=== PATIENT | male | born 1950 | race Caucasian/White ===

== ENCOUNTER → 2019-12-23 | Outpatient (CLI) | payer OTHER ==
[~2019-12-23] MED LIST: CARISOPRODOL 3350 MG PO; FLEXERIL PO; MEDROLDOSEPACK PO; NORCO 5-325 TA1 EACH PO; PERCOCET 5-3251 EACH PO
== END ==
LOC: SJCVC 11:39
DX: I49.3 Ventricular premature depolarization (principal); I47.1 Supraventricular tachycardia; J44.9 Chronic obstructive pulmonary disease, unspecified; Z79.82 Long term (current) use of aspirin; Z79.899 Other long term (current) drug therapy; Z87.891 Personal history of nicotine dependence; Z82.49 Family history of ischemic heart disease and other diseases of the circulatory system

== ENCOUNTER → 2019-12-31 | Outpatient (CLI) | payer OTHER | LOC: SJCVCIMAG 07:59 | PROVIDERS: ATTEND Internal Medicine Cardiovascular Disease | DX: R94.31 Abnormal electrocardiogram [ECG] [EKG] (principal); I37.1 Nonrheumatic pulmonary valve insufficiency; I47.1 Supraventricular tachycardia ==

== ENCOUNTER → 2020-01-21 | Outpatient (CLI) | payer OTHER | LOC: SJCVC 15:05 | PROVIDERS: ATTEND Internal Medicine Cardiovascular Disease | DX: R00.1 Bradycardia, unspecified (principal); I47.1 Supraventricular tachycardia; J44.9 Chronic obstructive pulmonary disease, unspecified; Z79.82 Long term (current) use of aspirin; Z79.899 Other long term (current) drug therapy; Z82.49 Family history of ischemic heart disease and other diseases of the circulatory system; Z87.891 Personal history of nicotine dependence ==

== ENCOUNTER → 2020-02-19 | Outpatient (CLI) | payer OTHER | LOC: SJCVC 14:33 | PROVIDERS: ATTEND Internal Medicine Cardiovascular Disease | DX: R00.1 Bradycardia, unspecified (principal); I47.1 Supraventricular tachycardia; J44.9 Chronic obstructive pulmonary disease, unspecified; Z79.82 Long term (current) use of aspirin; Z79.899 Other long term (current) drug therapy; Z82.49 Family history of ischemic heart disease and other diseases of the circulatory system; Z87.891 Personal history of nicotine dependence ==

== ENCOUNTER → 2020-08-26 | Outpatient (CLI) | payer OTHER | LOC: SJCVC 14:12 | PROVIDERS: ATTEND Internal Medicine Cardiovascular Disease | DX: I47.1 Supraventricular tachycardia (principal); I49.1 Atrial premature depolarization; I49.3 Ventricular premature depolarization; I73.9 Peripheral vascular disease, unspecified; J44.9 Chronic obstructive pulmonary disease, unspecified; Z88.8 Allergy status to other drugs, medicaments and biological substances; Z98.890 Other specified postprocedural states; Z79.899 Other long term (current) drug therapy; Z87.891 Personal history of nicotine dependence; Z82.49 Family history of ischemic heart disease and other diseases of the circulatory system ==